=== PATIENT | female | born 1940 | race Caucasian/White ===

== ENCOUNTER 2018-03-18 09:37 | Inpatient (IN) | payer MEDICARE, BC ==
[~2018-03-18] VITALS: Ht 162.6 cm; Wt 77.3 kg
--- NOTE | ~2018-03-18 | EKG ---
[place], [place] ELECTROCARDIOGRAM REPORT NAME: HERMES SORIANO UNIT #: [id number] ROOM: 416 DOCTOR: CHIDI DRAFT REPORT BIRTHDATE: [birth year] [facility] Test Date: 2018-03-18 Test Time: 16:15:05 Pat Name: HERMES SORIANO Department: Room: 416 2 Gender: F Key Account Manager: SS RESP : 1940 Requested By: BLADE BRITTON Order Number: [id number] Reading MD: Atul Garibay MD Measurements Intervals [place] Rate: 66 P: 35 MT: 163 QRS: -19 QRSD: 104 T: 29 QT: 419 QTc: 439 Interpretive Statements Sinus rhythm Abnormal R-wave progression, early transition Compared to previous ECG this date, PVC is no longer seen. Electronically Signed On 03-18-2018 13:57:56 PDT by Atul Garibay MD CM:EKGRPT:ELECTROCARDIOGRAM REPORT [id number] BLADE ALVARADO DRAFT REPORT BLADE BRITTON DO
--- NOTE | ~2018-03-18 | EKG ---
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
--- NOTE | ~2018-03-18 | EKG ---
[place], [place] ELECTROCARDIOGRAM REPORT NAME: HERMES SORIANO UNIT #: [id number] ROOM: 416 DOCTOR: CHIDI DRAFT REPORT BIRTHDATE: [birth year] [facility] Test Date: 2018-03-18 Test Time: 09:41:47 Pat Name: HERMES SORIANO Department: Room: 416 2 Gender: F Manager Exchange: 15 : 1940 Requested By: KODY PEOPLES Order Number: [id number] Reading MD: Atul Garibay MD Measurements Intervals [place] Rate: 56 P: 1 DE: 138 QRS: -22 QRSD: 94 T: 8 QT: 427 QTc: 413 Interpretive Statements Sinus rhythm RSR' in V1 or V2, probably normal variant Left ventricular hypertrophy No change from earlier ECG this date. Electronically Signed On 03-19-2018 20:20:26 PDT by Atul Garibay MD CM:EKGRPT:ELECTROCARDIOGRAM REPORT 0 19 KODY MURILLO DRAFT REPORT KODY PEOPLES M.D.
--- NOTE | ~2018-03-18 | PR ---
[place], [place] PROGRESS NOTE NAME: HERMES SORIANO UNIT #: [id number] ROOM: 416 DOCTOR: JENN CA MD BIRTHDATE: [birth year] DOS: 03/19/2018 ADDENDUM I have reviewed the stress images on the patient obtained earlier today, 03/19/2018. She does have a moderate sized area of lateral ischemia. The amount of myocardium at risk is fairly limited and she has normal wall motion and normal overall systolic function. She has not had any signs of an acute ST elevation myocardial infarction and in this situation, her prognosis should be equal whether she is treated with stenting or with medical therapy. I am concerned about having her undergo angioplasty and a stent because it will require one year of dual antiplatelet therapy in addition to her warfarin. The risk of bleeding in this situation is quite high. I did spend a considerable amount of time explaining the issues to the patient, the patient's , and their daughter by phone. I have started her on low dose carvedilol. They are very concerned that her blood pressure may not tolerate the medicine. They explained to me that she had hypotension when she was on metoprolol and lisinopril in the past. Hopefully, if we start a small dose of the beta travis and avoid an MERLYN inhibitor, we will not run and do a similar problem. They have agreed to at least start therapy with carvedilol. We will watch her overnight. I will make arrangements for her to be followed up in the office next week. As I told them if she is not responding nicely to the beta travis, we can always go back and do the heart catheterization, but I think that it will be a problem given her need for long-term warfarin anticoagulation. JENN CA MD CM:PNTRANS [id number] JENN CA MD 03/20/18 1713 interface
--- NOTE | ~2018-03-18 | PR ---
[place], [place] PROGRESS NOTE [id number] UNIT #: [id number] ROOM: 416 DOCTOR: JENN CA MD BIRTHDATE: [birth year] DOS: 03/20/2018 CARDIOLOGY PROGRESS NOTE SUBJECTIVE: The patient was seen at her bedside with her in attendance today, 03/20/2018 for followup of her atherosclerotic heart disease. The patient feels well and has not had any further chest pain. She, her and family have discussed the issues surrounding her coronary artery disease at length and have decided that they would really like to undergo angiography and potential percutaneous revascularization. Her stress test is intermediate risk and she is worried about the potential for future problems with medical therapy, especially since she has had hypotension on beta blockers in the past. Therefore, we have agreed to arrange for this. I did once again emphasized that she will have to be on dual-antiplatelet therapy and warfarin for up to a year. We may be able to go with single antiplatelet therapy after 6 months, but that is not assured. She is also discussed with us the possibility of changing from warfarin to one of the direct oral anticoagulants and this can be discussed further after her catheterization. PHYSICAL EXAMINATION: VITAL SIGNS: Her pulse is 58 and regular, blood pressure is 184/94. She is afebrile. She weighs 77.4 kilograms. HEENT: Normocephalic, atraumatic. NECK: Supple. She has no jugular distention. Carotids are full. LUNGS: Respirations are unlabored. Chest is clear to auscultation and percussion. HEART: Has a regular rhythm with an S4 gallop. ABDOMEN: Benign. EXTREMITIES: Showed no edema. IMPRESSION: 1. Presentation with unstable angina. 2. Paroxysmal atrial fibrillation complicated by stroke. The patient's most recent stroke was in 07/2017. 3. Essential hypertension with labile blood pressure control. PLAN: Once again, I had a long conversation with the patient and her . They have requested that we proceed with cardiac catheterization and potential revascularization. We will discontinue warfarin and use Lovenox as needed to maintain anticoagulation up until the day before her catheterization. She will be scheduled to have catheterization done at 12:30 on 03/23/2018. Revascularization will occur at that time if appropriate. According to the society for cardiovascular angiography and interventions, her indication number is 17 with a score of 9. I thank the hospitalist physicians for asking our advice regarding her care. [place], [place] PROGRESS NOTE NAME: HERMES SORIANO UNIT #: [id number] ROOM: [facility] DOCTOR: JENN CA MD BIRTHDATE: [birth year] JENN CA MD CM:PNTRANS [id number] JENN CA MD 03/20/18 1713 interface
--- NOTE | ~2018-03-18 | EKG ---
[place], [place] ELECTROCARDIOGRAM REPORT NAME: HERMES SORIANO UNIT #: [id number] ROOM: 416 DOCTOR: CHIDI DRAFT REPORT BIRTHDATE: [birth year] [facility] Test Date: 2018-03-18 Test Time: 13:42:04 Pat Name: HERMES SORIANO Department: Room: 416 2 Gender: F Bsa/Aml Compliance Officer: Martha Nunes : 1940 Requested By: BLADE BRITTON Order Number: [id number] Reading MD: Atul Garibay MD Measurements Intervals [place] Rate: 58 P: 13 [place]: 152 QRS: -10 QRSD: 101 T: 43 QT: 424 QTc: 417 Interpretive Statements Sinus rhythm Ventricular premature complex Abnormal R-wave progression, early transition Baseline wander in lead(s) aVL,aVF,V4,V5 Electronically Signed On 03-18-2018 13:54:49 PDT by Atul Garibay MD CM:EKGRPT:ELECTROCARDIOGRAM REPORT 1342 [id number] BLADE ALVARADO DRAFT REPORT BLADE BRITTON DO
--- NOTE | ~2018-03-18 | PR ---
[place], [place] PROGRESS NOTE NAME: HERMES SORIANO UNIT #: [id number] ROOM: 416 DOCTOR: BRAD SOFIA,ADELAIDE BIRTHDATE: [birth year] DOS: 03/22/2018 CARDIOLOGY FOLLOWUP VISIT NOTE REASON FOR VISIT: Chest pain, abnormal stress test and atrial fibrillation. SUBJECTIVE: The patient is feeling better. Denies any chest pain, shortness of breath. No palpitation, dizziness. No PND, no orthopnea. No nausea, vomiting. No fever and chills. REVIEW OF SYSTEMS: Review of the 10 system negative except as mentioned above. PHYSICAL EXAMINATION: VITAL SIGNS: Blood pressure 140/92, respiratory rate was 18, pulse of 58, weight 77.7 kilos. GENERAL: The patient is alert, oriented, no acute distress. HEAD AND NECK: Pupils are equal, no jaundice. Neck is supple, nondistended. No carotid bruit. CHEST: Symmetrical, nontender. LUNGS: Clear to auscultation bilaterally. HEART: Regular rhythm, no S3, no palpable thrills. ABDOMEN: Benign, nontender. Bowel sounds normal. EXTREMITIES: Showed no edema. Distal pulses palpable. SKIN: Warm and dry. No cyanosis, no clubbing. RECTAL: Deferred. GENITOURINARY: Deferred. LABORATORY DATA: Her labs and medications reviewed. INR is 1.2. IMPRESSION: 1. Chest pain, myocardial infarction ruled out. 2. Abnormal stress test with inferolateral reversible ischemia. 3. Hypertension. 4. Recent cerebrovascular accident. 5. Paroxysmal atrial fibrillation. RECOMMENDATIONS: 1. Continue current medications include aspirin, beta blockers, and Lovenox. 2. Her Coumadin was on hold. 3. She was scheduled to [facility] for cardiac catheterization. Risks and benefits of cardiac catheter discussed with her and her who is at bedside and all questions answered. 4. After cardiac catheterization, her oral anticoagulation will be resumed and family preferred to take NOACs either Eliquis or Xarelto rather than Coumadin. Her indication for cardiac catheterization is 17 with AUC score of 9. 5. Will discontinue Lovenox after tonight dose. [place], [place] PROGRESS NOTE NAME: HERMES SORIANO UNIT #: [id number] ROOM: [facility] DOCTOR: ADELAIDE SALINAS MD BIRTHDATE: [birth year] ADELAIDE SALINAS MD CM:ZABRINA [id number] ADELAIDE SALINAS MD 03/23/18 0116 interface
--- NOTE | ~2018-03-18 | PR ---
[place], [place] PROGRESS NOTE NAME: HERMES SORIANO UNIT #: [id number] ROOM: 416 DOCTOR: ADELAIDE SALINAS MD BIRTHDATE: [birth year] DOS: 03/21/2018 REASON FOR DIAGNOSES: The patient with chest pain, coronary artery disease, paroxysmal atrial fibrillation. HISTORY OF PRESENT ILLNESS: The patient is feeling better. Denies any chest pain, shortness of breath. No palpitation, no PND, no orthopnea. No nausea, vomiting or diarrhea. RHYTHM STRIPS: The patient was in sinus rhythm. REVIEW OF SYSTEMS: Review of the 10 systems negative except as mentioned above, PHYSICAL EXAMINATION: VITAL SIGNS: Blood pressure 147/71, pulse 60, respiratory rate 18, weight is 77.3 kilos. HEENT: Pupils are round and equal. No jaundice. NECK: Supple, nondistended. No carotid bruit. CHEST: Symmetrical, nontender. LUNGS: Few scattered rhonchi, but good air entry bilaterally. HEART: Regular rhythm, no S3, no palpable thrills. ABDOMEN: Benign, nontender. Bowel sounds normal. EXTREMITIES: Showed trace edema. Distal pulses palpable. SKIN: Warm and dry. No cyanosis, no clubbing. RECTAL: Deferred. GENITOURINARY: Deferred. MEDICATIONS AND ALLERGIES: Reviewed. LABORATORY DATA: Including INR is 1.6. IMPRESSION: 1. Chest pain. 2. Paroxysmal atrial fibrillation. 3. History of coronary artery disease. 4. History of cerebrovascular accident with recent cerebrovascular accident in July of 2017. 5. Hypertension. RECOMMENDATIONS: 1. Start Lovenox. Her INR is 1.6. 2. Continue with current medications. 3. Aspirin 81 mg once daily. 4. She will be scheduled for cardiac catheterization at [facility] in Friday at 12:30 p.m. 5. Check routine labs Friday morning. 6. There is no family at bedside. 7. Further recommendation based on her cardiac catheterization findings. [place], [place] PROGRESS NOTE NAME: HERMES SORIANO UNIT #: [id number] ROOM: 416 DOCTOR: ADELAIDE SALINAS MD BIRTHDATE: [birth year] ADELAIDE SALINAS MD CM:ZABRINA [id number] ADELAIDE SALINAS MD 03/21/18 2209 interface
--- NOTE | ~2018-03-18 | PR ---
[place], [place] PROGRESS NOTE NAME: HERMES SORIANO UNIT #: [id number] ROOM: 416 DOCTOR: JENN CA MD BIRTHDATE: [birth year] DOS: SUBJECTIVE: The patient was seen today just prior to her stress test in the Cardiology Department on 03/19/2018. She states that she slept very well overnight and had no further chest or jaw pains. She denies any palpitations and states that she feels back to normal again. PHYSICAL EXAMINATION: VITAL SIGNS: Today, her pulse is 60 and regular, blood pressure is 146/76. She is afebrile. NECK: Supple. She has no jugular distention. Carotids are full without bruits. LUNGS: Respirations are unlabored. Her chest is clear to auscultation and percussion. She has no presacral edema or chest wall tenderness. HEART: Had a regular rhythm with an S4 gallop. ABDOMEN: Benign. EXTREMITIES: Showed no edema. LABORATORY DATA: Hemoglobin is 11.9, white count 7500, platelet count 136,000. Sodium 145, potassium 3.8. Serial troponin levels have been normal. IMPRESSION: 1. Chest pain with high risk for acute coronary syndrome. 2. History of paroxysmal atrial fibrillation. 3. Hypertension. 4. Hyperlipidemia. PLAN: We will proceed with a pharmacologic stress test. Further recommendations will depend upon the results of the stress test. [facility] Cardiology and I thank the hospitalist physicians for asking our advice regarding her care. ADDENDUM I have reviewed the stress images on the patient obtained earlier today, 03/19/2018. She does have a moderate sized area of lateral ischemia. The amount of myocardium at risk is fairly limited and she has normal wall motion and normal overall systolic function. She has not had any signs of an acute ST elevation myocardial infarction and in this situation, her prognosis should be equal whether she is treated with stenting or with medical therapy. I am concerned about having her undergo angioplasty and a stent because it will require one year of dual antiplatelet therapy in addition to her warfarin. The risk of bleeding in this situation is quite high. I did spend a considerable amount of time explaining the issues to the patient, the patient's , and their daughter by phone. I have started her on low dose carvedilol. They are very concerned that her blood pressure may not tolerate the medicine. They explained to me that she had hypotension when she was on metoprolol and lisinopril in the past. Hopefully, if we start a small [place], [place] PROGRESS NOTE NAME: HERMES SORIANO UNIT #: [id number] ROOM: [facility] DOCTOR: LANNY SOFIA,JENN BIRTHDATE: [birth year] dose of the beta travis and avoid an MERLYN inhibitor, we will not run and do a similar problem. They have agreed to at least start therapy with carvedilol. We will watch her overnight. I will make arrangements for her to be followed up in the office next week. As I told them if she is not responding nicely to the beta travis, we can always go back and do the heart catheterization, but I think that it will be a problem given her need for long-term warfarin anticoagulation. JENN CA MD CM:PNTRANS [id number] JENN CA MD 03/20/18 0209 interface
[2018-03-18 09:39] VITALS: BP 113/60
[2018-03-18 09:59] VITALS: BP 119/65
[2018-03-18 10:04] LABS: BASO % 0.6 % (0.0-1.0); EOS # 0.2 10*3/uL (0.0-0.4); EOS % 2.8 % (1.0-4.0); HEMATOCRIT 37.3 % (37.0-47.0); HEMOGLOBIN 11.8 g/dl (12.0-16.0); LYMPH # 0.9 10*3/uL (1.3-4.4); LYMPH % 12.9 % (27.0-41.0); MEAN CELL VOLUME 93.3 fl (81.0-99.0); MEAN CORPUSCULAR HGB 29.5 pg (27.0-31.0); MEAN CORPUSCULAR HGB CONC 31.6 g/dl (33.0-37.0); MEAN PLATELET VOLUME 12.3 fl (9.6-12.3); MONO # 0.4 10*3/uL (0.1-1.0); MONO % 6.4 % (3.0-9.0); NEUT # 5.2 10*3/uL (2.3-7.9); NEUT % 77.2 % (47.0-73.0); PLATELET COUNT AUTOMATED 141 10*3/uL (130-400); RED CELL DISTRI WIDTH 13.2 % (0-14.5); WHITE BLOOD COUNT 6.7 10*3/uL (4.8-10.8)
[2018-03-18] MEDS ORDERED: LIPITOR40 MG PO (10:05)
[2018-03-18] MEDS ORDERED: COUMADIN3 M1 PO (10:05)
[2018-03-18 10:13] LABS: ACT PARTIAL THROMBO TIME 43.1 SECONDS (20.8-31.5); INTERNATIONAL NORM RATIO 3.7 (2.0-3.5)
[2018-03-18 10:21] LABS: ALBUMIN 3.3 gm/dl (3.1-4.5); ALKALINE PHOSPHATASE 82 U/L (45-117); BUN 16 mg/dl (7-24); CHLORIDE 111 mmol/L (98-107); CREATININE 0.97 mg/dL (0.55-1.02); POTASSIUM 3.9 mmol/L (3.5-5.1); SGOT/AST 13 IU/L (3-35); SGPT/ALT 20 U/L (12-78); SODIUM 143 mmol/L (136-145); TOTAL PROTEIN 6.8 gm/dL (6.4-8.2)
[2018-03-18 10:38] VITALS: BP 130/67
[2018-03-18 10:39] LABS: TROPONIN I < 0.015 ng/ml (<0.045)
[2018-03-18 11:35] LABS: BILIRUBIN NEGATIVE (NEGATIVE); BLOOD NEGATIVE (NEGATIVE); CLARITY CLEAR (CLEAR); COLOR YELLOW (YELLOW); GLUCOSE NEGATIVE (NEGATIVE); KETONE NEGATIVE (NEGATIVE); LEUKO ESTERASE TRACE (NEGATIVE); NITRITE NEGATIVE (NEGATIVE); SPECIFIC GRAVITY <= 1.005 (1.005-1.030); UROBILINOGEN 0.2 E.U./dl (0.2-1.0)
[2018-03-18 11:53] LABS: RBC 0-2 rbc/hpf (0-2)
[2018-03-18 12:11] VITALS: BP 112/80
[2018-03-18] MEDS ORDERED: DONEPEZIL HCL10 MG PO (14:21)
[2018-03-18] MEDS ORDERED: WARFARIN SODIUM1 MG PO (14:23)
[2018-03-18 16:00] VITALS: BP 157/74
[2018-03-18 20:00] VITALS: BP 179/62
[2018-03-19] VITALS: BP 158/82
[2018-03-19 06:11] LABS: BASO % 0.5 % (0.0-1.0); EOS # 0.2 10*3/uL (0.0-0.4); EOS % 2.7 % (1.0-4.0); HEMATOCRIT 37.8 % (37.0-47.0); HEMOGLOBIN 11.9 g/dl (12.0-16.0); LYMPH # 1.1 10*3/uL (1.3-4.4); LYMPH % 14.1 % (27.0-41.0); MEAN CELL VOLUME 93.6 fl (81.0-99.0); MEAN CORPUSCULAR HGB 29.5 pg (27.0-31.0); MEAN CORPUSCULAR HGB CONC 31.5 g/dl (33.0-37.0); MEAN PLATELET VOLUME 12.7 fl (9.6-12.3); MONO # 0.5 10*3/uL (0.1-1.0); MONO % 6.3 % (3.0-9.0); NEUT # 5.7 10*3/uL (2.3-7.9); NEUT % 76.1 % (47.0-73.0); PLATELET COUNT AUTOMATED 136 10*3/uL (130-400); RED BLOOD COUNT 4.04 10*6/uL (4.10-5.10); RED CELL DISTRI WIDTH 13.3 % (0-14.5); WHITE BLOOD COUNT 7.5 10*3/uL (4.8-10.8)
[2018-03-19 06:44] LABS: ACT PARTIAL THROMBO TIME 41.4 SECONDS (20.8-31.5); CHLORIDE 110 mmol/L (98-107); INTERNATIONAL NORM RATIO 3.1 (2.0-3.5); POTASSIUM 3.8 mmol/L (3.5-5.1); SODIUM 145 mmol/L (136-145)
[2018-03-19 06:52] LABS: ALBUMIN 3.2 gm/dl (3.1-4.5); ALKALINE PHOSPHATASE 75 U/L (45-117); BUN 17 mg/dl (7-24); CHOLESTEROL 116 mg/dL (<200); CREATININE 0.95 mg/dL (0.55-1.02); FREE T4 1.27 ng/dl (0.76-1.46); HDL CHOLESTEROL 45 mg/dl (40-60); LDL CHOLESTEROL 49 mg/dL (9-159); PHOSPHOROUS 2.7 mg/dL (2.5-4.9); SGOT/AST 12 IU/L (3-35); SGPT/ALT 20 U/L (12-78); TOTAL PROTEIN 6.7 gm/dL (6.4-8.2); TRIGLYCERIDES 111 mg/dl (<150); VLDL CHOLESTEROL 22 mg/dL (6-40)
[2018-03-19 07:35] LABS: VITAMIN D, 25-HYDROXY 22.4 ng/mL (30-100)
[2018-03-19 08:00] VITALS: BP 146/76
[2018-03-19 12:00] VITALS: BP 134/62
[2018-03-19 16:00] VITALS: BP 109/51
[2018-03-19 20:00] VITALS: BP 151/66
[2018-03-20] VITALS: BP 146/58
[2018-03-20 08:00] VITALS: BP 174/86; BP 184/94
[2018-03-20 11:58] LABS: INTERNATIONAL NORM RATIO 2.1 (2.0-3.5)
[2018-03-20 12:00] VITALS: BP 167/58
[2018-03-20 16:00] VITALS: BP 138/80
[2018-03-20 20:00] VITALS: BP 149/81
[2018-03-21 00:16] VITALS: BP 164/86
[2018-03-21 06:10] LABS: INTERNATIONAL NORM RATIO 1.6 (2.0-3.5)
[2018-03-21 08:00] VITALS: BP 144/80
[2018-03-21 12:00] VITALS: BP 149/71
[2018-03-21 16:00] VITALS: BP 165/71
[2018-03-21 20:00] VITALS: BP 155/75
[2018-03-22] VITALS: BP 134/69
[2018-03-22 06:26] LABS: INTERNATIONAL NORM RATIO 1.2 (2.0-3.5)
[2018-03-22 08:00] VITALS: BP 140/100
[2018-03-22 12:00] VITALS: BP 153/65
[2018-03-22 16:00] VITALS: BP 149/78
[2018-03-22 20:00] VITALS: BP 153/51
[2018-03-23] VITALS: BP 134/56
[2018-03-23] MEDS ORDERED: VITAMIN D-32000 UNIT PO (04:14)
[2018-03-23] MEDS ORDERED: CARVEDILOL3.125 MG PO (04:14)
[2018-03-23] MEDS ORDERED: ASPIRIN ADULT L81 M2 PO (04:14)
[2018-03-23 05:30] LABS: BASO # 0.1 10*3/uL (0.0-0.1); BASO % 0.9 % (0.0-1.0); EOS # 0.2 10*3/uL (0.0-0.4); EOS % 3.3 % (1.0-4.0); HEMOGLOBIN 12.3 g/dl (12.0-16.0); LYMPH # 1.1 10*3/uL (1.3-4.4); LYMPH % 15.7 % (27.0-41.0); MEAN CELL VOLUME 93.6 fl (81.0-99.0); MEAN CORPUSCULAR HGB 30.3 pg (27.0-31.0); MEAN CORPUSCULAR HGB CONC 32.4 g/dl (33.0-37.0); MEAN PLATELET VOLUME 11.5 fl (9.6-12.3); MONO # 0.5 10*3/uL (0.1-1.0); MONO % 7.6 % (3.0-9.0); NEUT # 4.9 10*3/uL (2.3-7.9); NEUT % 72.1 % (47.0-73.0); PLATELET COUNT AUTOMATED 151 10*3/uL (130-400); RED BLOOD COUNT 4.06 10*6/uL (4.10-5.10); RED CELL DISTRI WIDTH 13.2 % (0-14.5); WHITE BLOOD COUNT 6.8 10*3/uL (4.8-10.8)
[2018-03-23 05:39] LABS: BUN 17 mg/dl (7-24); CHLORIDE 110 mmol/L (98-107); CREATININE 0.91 mg/dL (0.55-1.02); POTASSIUM 3.6 mmol/L (3.5-5.1); SODIUM 142 mmol/L (136-145)
[2018-03-23 05:40] LABS: ACT PARTIAL THROMBO TIME 30.4 SECONDS (20.8-31.5); INTERNATIONAL NORM RATIO 1.1 (2.0-3.5)
[2018-03-23 08:00] VITALS: BP 106/66
== END 2018-03-23 09:04 | disposition other institution (70) | DRG 303 ==
LOC: ED 09:37 → 4E 11:39 → EDHOLD 11:39 → 4E 11:56
PROVIDERS: Emergency Medicine; Internal Medicine
PROC: 4A02XM4 Measurement of Cardiac Total Activity, External Approach (ICD-10-PCS; principal; 2018-03-19)
PROC: 3E033HZ Introduction of Radioactive Substance into Peripheral Vein, Percutaneous Approach (ICD-10-PCS; principal; 2018-03-19)
DX: I25.119 Atherosclerotic heart disease of native coronary artery with unspecified angina pectoris (principal); R35.0 Frequency of micturition; I48.0 Paroxysmal atrial fibrillation; E78.5 Hyperlipidemia, unspecified; R00.1 Bradycardia, unspecified; K59.00 Constipation, unspecified; F03.90 Unspecified dementia, unspecified severity, without behavioral disturbance, psychotic disturbance, mood disturbance, and anxiety; R79.89 Other specified abnormal findings of blood chemistry; R79.82 Elevated C-reactive protein (CRP); I10 Essential (primary) hypertension; Z79.899 Other long term (current) drug therapy; Z90.49 Acquired absence of other specified parts of digestive tract; Z90.710 Acquired absence of both cervix and uterus; Z87.891 Personal history of nicotine dependence; Z86.73 Personal history of transient ischemic attack (TIA), and cerebral infarction without residual deficits; Z82.49 Family history of ischemic heart disease and other diseases of the circulatory system; Z79.01 Long term (current) use of anticoagulants

== ENCOUNTER → 2018-04-29 | Outpatient (CLI) | payer MEDICARE, BC ==
[~2018-04-29] MED LIST: ASPIRIN ADULT L81 M2 PO; CARVEDILOL3.125 MG PO; COUMADIN3 M1 PO; DONEPEZIL HCL10 MG PO; LIPITOR40 MG PO; VITAMIN D-32000 UNIT PO; WARFARIN SODIUM1 MG PO
[2018-04-29 11:51] LABS: INTERNATIONAL NORM RATIO 2.4 (2.0-3.5)
== END | disposition home or self-care (01) ==
LOC: LAB 10:21
DX: I48.91 Unspecified atrial fibrillation (principal)

== ENCOUNTER → 2018-05-11 | Outpatient (CLI) | payer MEDICARE, BC | END | disposition home or self-care (01) | LOC: LAB 09:08 | PROVIDERS: Internal Medicine Infectious Disease | DX: I48.91 Unspecified atrial fibrillation (principal) ==